=== PATIENT | male | born 1965 | race Caucasian/White ===

== ENCOUNTER 2017-09-28 09:22 | Emergency (ER) | payer OTHER ==
[2017-09-28 09:55] VITALS: BP 103/83
--- NOTE | 2017-09-28 10:05 | UC ---
Lower Extremity/Ankle HPI - HPI Summary HPI Summary: LEFT FOOT PAIN X 2 WEEKS, NO KNOW INJURY , IS ON HIS FEET ALL DAY , PAIN IS AT LATERAL ASPECT OF THE LEFT FOOT, PAIN INCREASE WITH WALKING , + MILD SWELLING RIGHT ANKLE PAIN X 2 WEEKS HISTORY OF RIGHT ANKLE INJURY , S/P SURGERY - History of Current Complaint Chief Complaint: UCLowerExtremity Stated Complaint: LFT FOOT/ANKLE INJURY Time Seen by Provider: 09/28/17 09:31 Hx Obtained From: Patient Onset/Duration: Gradual Onset, Lasting Weeks - 2, Still Present Severity Initially: Moderate Severity Currently: Moderate Aggravating Factor(s): Standing, Ambulation Able to Bear Weight: Yes - Allergies/Home Medications Allergies/Adverse Reactions: Allergies Allergy/AdvReac Type Severity Reaction Status Date / Time No Known Allergies Allergy Verified 09/28/17 09:29 Home Medications: Home Medications Escitalopram (NF) [Lexapro 20 mg (NF)] 20 mg PO DAILY 09/28/17 [History Confirmed 09/28/17] Gabapentin CAP(*) [Neurontin 300 CAP(*)] 600 mg PO DAILY 09/28/17 [History Confirmed 09/28/17] Multiple Vitamin [Multivitamins] 1 cap PO DAILY 09/28/17 [History Confirmed 10/03] Naproxen Sodium [Naproxen Sodium 220 mg] 220 mg PO BID PRN 09/28/17 [History Confirmed 09/28/17] PMH/Surg Hx/FS Hx/Imm Hx Previously Healthy: Yes Other History Of: Negative For: HIV, Hepatitis B, Hepatitis C - Surgical History Surgical History: Yes Surgery Procedure, Year, and Place: plate and scews in right ankle unkown when - Family History Known Family History: Positive: None Negative: Blood Disorder - Social History Alcohol Use: None Substance Use Type: None Smoking Status (MU): Heavy Every Day Tobacco Smoker Type: Cigarettes Amount Used/How Often: 1 ppd - Immunization History Most Recent Influenza Vaccination: jun 2015 Review of Systems Constitutional: Negative Skin: Negative Eyes: Negative ENT: Negative Respiratory: Negative Musculoskeletal: Arthralgia - RIGHT ANKLE, Other: - LEFT FOOT PAIN Is Patient Immunocompromised?: No All Other Systems Reviewed And Are Negative: Yes Physical Exam Triage Information Reviewed: Yes Appearance: Well-Appearing, No Pain Distress, Well-Nourished Vital Signs: Initial Vital Signs Temp 98.2 F 09/28/17 09:32 Pulse 86 09/28/17 09:32 Resp 20 09/28/17 09:32 BP 103/83 09/28/17 09:32 Eye Exam: Normal ENT: Positive: Normal ENT inspection, Hearing grossly normal, Pharynx normal Neck: Positive: Supple, Nontender, No Lymphadenopathy Respiratory: Positive: Chest non-tender, Lungs clear, Normal breath sounds Cardiovascular: Positive: RRR, No Murmur, Pulses Normal Musculoskeletal: Positive: Other: - LEFT FOOT: MILD SWELLING LATERAL LEFT FOOT, + TENDERNESS LEFT 5TH METATARSAL AND PLANTER LEFT FOOT RIGHT ANKLE : NO SWELLING , NO TENDERENSS, PAIN WITH WALKING Neurological: Positive: Alert Diagnostics - Laboratory Diagnostic Studies Completed/Ordered: left foot xray: IMPRESSION: No fracture is identified. Calcifications between the first and second. metatarsal may be related to prior injury. right ankle xray: 1. STATUS POST INTERNAL FIXATION OF THE DISTAL FIBULA. 2. OSTEOARTHRITIS. 3. NO ACUTE OSSEOUS INJURY. IF SYMPTOMS PERSIST, RECOMMEND REPEAT IMAGING Lower Extremity Course/Dx - Differential Dx/Diagnosis Provider Diagnoses: left foot pain. left foot plantar fasciitis. right ankle pain Discharge - Discharge Plan Condition: Stable Disposition: HOME Prescriptions: Naproxen [Naproxen 500 mg] 500 mg PO BID #20 tab Patient Education Materials: Plantar Fasciitis Exercises (GEN), Plantar Fasciitis (ED), Arthritis (ED) Referrals: Verito Dover NP [Primary Care Provider] - 7 Days
--- NOTE | 2017-09-28 10:21 | RAD ---
HISTORY: Right ankle pain COMPARISONS: None VIEWS: 3, Frontal, lateral, and oblique views of the right ankle FINDINGS: BONE DENSITY: Normal. BONES: The patient is status post internal fixation of the distal fibula. There is no hardware failure or osteolysis. JOINTS: There is osteoarthritis of the tibiotalar and fibulotalar articulations ALIGNMENT: There is no dislocation. SOFT TISSUES: Unremarkable. OTHER FINDINGS: None. IMPRESSION: 1. STATUS POST INTERNAL FIXATION OF THE DISTAL FIBULA. 2. OSTEOARTHRITIS. 3. NO ACUTE OSSEOUS INJURY. IF SYMPTOMS PERSIST, RECOMMEND REPEAT IMAGING
--- NOTE | 2017-09-28 10:24 | RAD ---
Indication: Left foot pain. 3 views of left foot demonstrates no fracture. No other bone or joint abnormalities identified. Some calcifications are noted between the first and second metatarsal base. IMPRESSION: No fracture is identified. Calcifications between the first and second metatarsal may be related to prior injury.
== END 2017-09-28 10:45 | disposition home or self-care (01) ==
LOC: UCCORT 09:22
DX: M79.672 Pain in left foot (principal); M72.2 Plantar fascial fibromatosis; M25.571 Pain in right ankle and joints of right foot; M19.071 Primary osteoarthritis, right ankle and foot; F17.210 Nicotine dependence, cigarettes, uncomplicated
CPT/HCPCS: 99212; G0463

== ENCOUNTER 2017-11-30 09:23 | Emergency (ER) | payer OTHER ==
[2017-11-30 11:00] VITALS: BP 123/86
--- NOTE | 2017-11-30 11:18 | UC ---
Lower Extremity/Ankle HPI - HPI Summary HPI Summary: 52 y/o male with multipe co-morbidities presents with pain at bottom of foot, worse this AM, improving with walking, occurring past 6 days, worsening. no bruising, possibl swelling at base of foot, no trauma btu increased walking with snow removal over past 6 days, states has poor support in snow boots. - History of Current Complaint Chief Complaint: UCLowerExtremity Stated Complaint: RIGHT FOOT COMPLAINT Time Seen by Provider: 11/30/17 10:49 Hx Obtained From: Patient Severity Initially: Mild Severity Currently: Moderate Pain Intensity: 6 Pain Scale Used: 0-10 Numeric Aggravating Factor(s): Standing, Ambulation Alleviating Factor(s): Rest Able to Bear Weight: Yes - Allergies/Home Medications Allergies/Adverse Reactions: Allergies Allergy/AdvReac Type Severity Reaction Status Date / Time bee venom protein (honey bee) Allergy Severe Anaphylatic Verified 11/30/17 10:49 Shock PMH/Surg Hx/FS Hx/Imm Hx Previously Healthy: No Cardiovascular History: Cardiac Disease, Hypertension Other History Of: Negative For: HIV, Hepatitis B, Hepatitis C - Surgical History Surgical History: Yes Surgery Procedure, Year, and Place: plate and scews in right ankle unkown when - Family History Known Family History: Positive: None Negative: Blood Disorder - Social History Alcohol Use: None Substance Use Type: None Smoking Status (MU): Heavy Every Day Tobacco Smoker Type: Cigarettes Amount Used/How Often: 1 PPD Have You Smoked in the Last Year: Yes - Immunization History Most Recent Influenza Vaccination: jun 2015 Review of Systems Musculoskeletal: Arthralgia, Edema Is Patient Immunocompromised?: No All Other Systems Reviewed And Are Negative: Yes Physical Exam Triage Information Reviewed: Yes Appearance: Well-Appearing, No Pain Distress, Well-Nourished Vital Signs: Initial Vital Signs Temp 98 F 11/30/17 10:53 Pulse 74 11/30/17 10:53 Resp 18 11/30/17 10:53 BP 123/86 11/30/17 10:53 Pulse Ox 98 11/30/17 10:53 Vital Signs Reviewed: Yes Eye Exam: Normal Musculoskeletal: Positive: Strength Intact, ROM Intact, No Edema, Other: - tenderness at anterior calcaneous at attachment of plantar fascia, exquisite tenderness, none over carpals, calc, talus, ankle. Full ankle PROM, full ROM of toes, cap refill <2sec on great toe, DP 2+,sensation grossly intact. Psychological Exam: Normal Skin Exam: Normal - good skin turgor Lower Extremity Course/Dx - Course Course Of Treatment: discussed radiograph eval, however patient had similar symptoms 3 months ago, terated conservatively, same tx with f/u with ortho - Differential Dx/Diagnosis Provider Diagnoses: plantar fascitis Discharge - Discharge Plan Condition: Good Disposition: HOME Prescriptions: Naproxen [Naproxen 500 mg] 500 mg PO Q12H PRN #30 tab PRN Reason: pain, inflammation Patient Education Materials: Plantar Fasciitis Exercises (GEN), Plantar Fasciitis (ED) Referrals: Verito Dover NP [Primary Care Provider] - Bhaskar Reed MD [Medical Doctor] - (as needed for foot pain or if no relief within 5-7 days ) Additional Instructions: - INcrease stretching of foot daily - Naproxen 500mg twice daily for at least 4 days, continue as needed for pain
== END 2017-11-30 11:22 | disposition home or self-care (01) ==
LOC: UCCORT 09:23
DX: M72.2 Plantar fascial fibromatosis (principal); F17.210 Nicotine dependence, cigarettes, uncomplicated
CPT/HCPCS: 99211; G0463

== ENCOUNTER 2018-03-22 12:08 | Emergency (ER) | payer OTHER ==
[2018-03-22 12:35] VITALS: BP 118/83
--- NOTE | 2018-03-22 12:44 | UC ---
Lower Extremity/Ankle HPI - HPI Summary HPI Summary: Patient presents complaining of pain to the outside of his right ankle and top of his right foot. He states that he was walking just prior to arrival and felt a "pop" causing severe pain to the ankle and foot. He denies any actual injury. He does; however, have a remote history of prior fracture dislocation to the right ankle lower leg area. He also notes a history of chronic recurring plantar fasciitis to the right foot but notes that this is very different. It is no other complaints. - History of Current Complaint Chief Complaint: UCLowerExtremity Stated Complaint: RIGHT FOOT/ANKLE COMP Time Seen by Provider: 03/22/18 12:28 Hx Obtained From: Patient Onset/Duration: Sudden Onset Pain Intensity: 8 Aggravating Factor(s): Standing, Ambulation Alleviating Factor(s): Rest Able to Bear Weight: Yes - Allergies/Home Medications Allergies/Adverse Reactions: Allergies Allergy/AdvReac Type Severity Reaction Status Date / Time bee venom protein (honey bee) Allergy Severe Anaphylatic Verified 03/22/18 12:23 Shock Home Medications: Home Medications Diclofenac Sodium EC TAB* [Voltaren EC TAB*] 25 mg PO DAILY 03/22/18 [History Confirmed 03/22/18] PMH/Surg Hx/FS Hx/Imm Hx - Additional Past Medical History Additional PMH: fx/dislocation R ankle area, plantar fasciitis, chronic pain Endocrine History: Dyslipidemia Psychological History: Depression Other History Of: Negative For: HIV, Hepatitis B, Hepatitis C - Surgical History Surgical History: Yes Surgery Procedure, Year, and Place: plate and scews in right ankle unkown when - Family History Known Family History: Positive: None Negative: Blood Disorder - Social History Occupation: Disabled Lives: Alone Alcohol Use: None Substance Use Type: None Smoking Status (MU): Heavy Every Day Tobacco Smoker Type: Cigarettes Amount Used/How Often: 1 PPD Have You Smoked in the Last Year: Yes - Immunization History Most Recent Influenza Vaccination: jun 2015 Review of Systems Constitutional: Negative Skin: Negative Eyes: Negative ENT: Negative Respiratory: Negative Cardiovascular: Negative Gastrointestinal: Negative Genitourinary: Negative Motor: Negative Neurovascular: Negative Musculoskeletal: Other: - pain/swelling R ankle/dorsal foot Neurological: Negative Psychological: Negative All Other Systems Reviewed And Are Negative: Yes Physical Exam Triage Information Reviewed: Yes Appearance: Well-Appearing Vital Signs: Initial Vital Signs Temp 97.7 F 03/22/18 12:26 Pulse 78 03/22/18 12:26 Resp 18 03/22/18 12:26 BP 118/83 03/22/18 12:26 Pulse Ox 97 03/22/18 12:26 Eyes: Positive: Conjunctiva Clear ENT: Positive: Normal ENT inspection Neck: Positive: Supple Respiratory: Positive: Lungs clear, Normal breath sounds Cardiovascular: Positive: RRR, No Murmur Abdomen Description: Positive: Nontender, No Organomegaly, Soft Bowel Sounds: Positive: Present Musculoskeletal: Positive: Other: - RLE: hip, knee, achilles atraumatic. R lateral ankle with mild swelling. lateral ankle and dorsal mule tender. Gross s/ v/m to foot is intact. Limping gait. Diagnostics - Radiology No standard instances Radiology Interpretation Completed By: Radiologist - HARDWARE AND BONES ARE UNREMARKABLE(SEE FULL REPORT) Lower Extremity Course/Dx - Course Course Of Treatment: pt advised to take wheelchair to Xray but refused. No concern for infection. no fx/dislocation. acute pain/swelling thus most c/w sprain. will cam boot and refer to orthopedics. - Differential Dx/Diagnosis Provider Diagnoses: Acute pain R lateral ankle and dorsal foot. Sprain R ankle and foot. Discharge - Sign-Out/Discharge Documenting (check all that apply): Discharge/Admit/Transfer - Discharge Plan Condition: Stable Disposition: HOME Patient Education Materials: Plantar Fasciitis Exercises (GEN), Sprain (ED), Plantar Fasciitis (ED) Referrals: Verito Dover NP [Primary Care Provider] - If Needed Bhaskar Reed MD [Medical Doctor] - As Soon As Possible Additional Instructions: CAM BOOT UNTIL CLEARED - Billing Disposition and Condition Condition: STABLE Disposition: Home
--- NOTE | 2018-03-22 13:21 | RAD ---
HISTORY: Right foot and ankle pain, COMPARISONS: September 28, 2017 VIEWS: 6, Frontal, lateral, and oblique views of the right foot and right ankle FINDINGS: BONE DENSITY: Normal. BONES: There is a bone island of the distal tibia. The patient is status post internal fixation of the distal fibula. There is no hardware failure or osteolysis. There is postsurgical change to the talus. There are calcaneal enthesophytes. JOINTS: There is mild osteoarthritis of the tibiotalar and fibulotalar articulation and the first MCP joint. ALIGNMENT: There is no dislocation. SOFT TISSUES: Unremarkable. OTHER FINDINGS: None. IMPRESSION: 1. POSTSURGICAL CHANGE. 2. MILD OSTEOARTHRITIS. 3. NO ACUTE OSSEOUS INJURY TO THE RIGHT FOOT OR RIGHT ANKLE. IF SYMPTOMS PERSIST, RECOMMEND REPEAT IMAGING
== END 2018-03-22 14:03 | disposition home or self-care (01) ==
LOC: UCCORT 12:08
DX: S93.401A Sprain of unspecified ligament of right ankle, initial encounter (principal); S93.601A Unspecified sprain of right foot, initial encounter; X58.XXXA Exposure to other specified factors, initial encounter; Y93.9 Activity, unspecified; Y99.9 Unspecified external cause status; F17.210 Nicotine dependence, cigarettes, uncomplicated; Z91.030 Bee allergy status
CPT/HCPCS: 99212; G0463